=== PATIENT | male | born 2000 | race Caucasian/White ===

== ENCOUNTER 2020-05-10 01:41 | Emergency (ER) | payer SELFPAY ==
[2020-05-10 01:55] VITALS: PULSE 91; RESP 18; TEMP 36.8; O2SAT 98; BMI 26.6
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
[2020-05-10 02:31] VITALS: BP 120/65; PULSE 79; O2SAT 98
[2020-05-10] MEDS: HYDROcodone-acetaminophen 7.5-325 mg Tablet 1 TAB PO (02:52)
[2020-05-10 03:45] VITALS: PULSE 74; O2SAT 98
--- NOTE | 2020-05-10 03:51 | PC.NURSE ---
PT SIGNED OUT AMA DECLINE MORE TESTS WELL SLING
== END 2020-05-10 03:52 | disposition home or self-care (01) ==
PROVIDERS: Emergency Provider Physician Assistant; PCP Pediatrics
DX: S50.01XA Contusion of right elbow, initial encounter (principal); V59.9XXA Occupant (driver) (passenger) of pick-up truck or van injured in unspecified traffic accident, initial encounter
CPT/HCPCS: 12345; 73080; 99281; 99282; 99283

== ENCOUNTER 2020-07-04 15:03 | Emergency (ER) | payer OTHER, SELFPAY ==
[2020-07-04 15:48] VITALS: BP 128/88; PULSE 89; RESP 18; TEMP 36.8; O2SAT 100; BMI 26.8
[2020-07-04] MEDS: tetanus-dipt-pertussis 0.5 mL SDV IM (16:55)
--- NOTE | 2020-07-04 17:01 | W.ED.HEATRA ---
HPI - Head Injury General: Chief complaint: Head Injury Stated complaint: HEAD INJURY Time Seen by Provider: 07/04/20 16:22 Source: patient Mode of arrival: ambulatory Limitations: no limitations History of Present Illness: HPI Narrative: 20-year-old male patient presents to the emergency department with laceration to the top of his head. 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 He states had quick episode of visual change but returned to normal. He states did not experience near syncope or syncopal episode. He has not vomited, he states has a mild headache where the laceration/contusion occurred. MD Complaint: head injury and head pain Onset (ago): hour(s) (1-2) Mechanism of Injury: other (Blunt trauma) Place: work Loss of Consciousness: no Location of injury: parietal Severity: mild Severity scale (1-10): 4 Quality: sharp Radiation: none Other Injuries: none Associated symptoms: Reports no associated symptoms; Deny confusion, nausea, neck pain, vertigo or vomiting Review of Systems General: Reports: 10 or more systems reviewed and unremarkable except in HPI and below Const: Denies: fever(s), chills, body aches, fatigue, malaise or diaphoresis Eyes: Denies: blurry vision or eye redness ENMT: Denies: throat pain, dental pain or disequilibrium Card: Denies: chest pain, palpitations or irregular heart rhythm Resp: Denies: dyspnea, productive cough, non-productive cough or wheezing GI: Denies: abdominal pain, nausea or vomiting : Denies: dysuria Musc: Denies: neck pain, back pain, joint pain or joint stiffness Skin/Breast: Denies: rash or pruritus Neuro: Reports: headache(s); Denies: numbness in extremities, weakness in extremities, lack of coordination, difficulty walking, dizziness, vertigo, confusion, behavioral changes, Slurred speech present or difficulty communicating thoughts Psych: Denies: anxiety or depression Sukhwinder/Lymph: Denies: easy bruising PFSH ED PFSH: Social History Smoking and tobacco status: never smoked Physical Exam Const: COMMON NORMALS: no acute distress, patient oriented x3, healthy appearing and alert GENERAL APPEARANCE: cooperative, comfortable and well hydrated HENMT: COMMON NORMALS: normocephalic, Normal external nose present and moist oral mucous membranes HEAD & SCALP: normocephalic NOSE: Normal external nose present Eye: COMMON NORMALS: Equal, round and reactive pupils present and EOMs intact bilaterally GENERAL EYE: appearance normal, both eyes and all related structures PUPIL: Yes Equal, round and reactive pupils present Neck/C-Spine: COMMON NORMALS: full ROM, no lymphadenopathy and no meningeal signs GENERAL: Yes normal visual inspection and Yes trachea midline CERVICAL SPINE: Yes cervical ROM normal, No cervical ROM abnormal, No pain with cervical ROM, No Cervical spine tenderness, No Paracervical muscle tenderness, No Paracervical spasm and No Trapezius muscle tenderness Lymph: LYMPHATIC: no lymphadenopathy noted Chest: COMMONS NORMALS: normal inspection of the chest Resp: COMMON NORMALS: normal respiratory effort and clear to auscultation bilaterally AUSCULTATION: clear to auscultation bilaterally Cardio: COMMON NORMALS: regular rhythm, S1 normal heart sound present and S2 normal heart sound present RHYTHM: regular rhythm HEART SOUNDS: S1 normal heart sound present and S2 normal heart sound present GI: COMMON NORMALS: Soft to palpation and non-tender INSPECTION: Yes normal to inspection PALPATION: Yes Soft to palpation : COMMON NORMALS: Yes no CVA tenderness BLADDER/KIDNEY EXAM: Yes no CVA tenderness Back/Pelvis: COMMON NORMALS: no CVA tenderness and thoracic and lumbar spine normal to inspection Extremity: COMMON NORMALS: normal to inspection and capillary refill normal Neuro: MICHELLE COMA SCALE: document GCS findings Michelle coma scale eye opening: Spontaneous Michelle coma scale verbal response: Orientated [place] coma scale motor response: Obey commands Michelle coma scale total score: 15 COMMON NORMALS: patient oriented x3 and no focal motor deficits SENSORIUM/ORIENTATION: Yes alert MENINGEAL SIGNS: Yes no meningeal signs SPEECH: speech normal GAIT: Yes Normal gait present MOTOR EXAM: 5/5 motor strength present throughout PUPIL EXAM: Normal pupillary reactivity/response: bilateral Right pupil size (mm): 4 Left pupil size (mm): 4 Psych: COMMON NORMALS: mental status grossly normal, Normal thought process present, cooperative, normal affect, speech normal and activity/motor behavior normal; negative for denies hallucinations, negative for denies homicidal ideation and negative for denies suicidal ideation APPEARANCE: Yes grossly normal ATTITUDE: Yes calm ACTIVITY/MOTOR BEHAVIOR: Yes appropriate eye contact SPEECH: Yes normal speech THOUGHT PROCESS: Normal thought process present THOUGHT CONTENT: Yes Normal thought content present MEMORY/COGNITION: Yes memory grossly intact INSIGHT: Good insight present (Psych) JUDGEMENT: Good judgement present (Psych) Skin: COMMON NORMALS: turgor normal, no petechiae and no mottling GENERAL SKIN EXAM: elasticity normal and turgor normal TRAUMA: laceration (Superior scalp, at the crown, 1.5 cm stellate) stellate, actively bleeding (Mild amount) and involves subcutaneous tissue Procedures Laceration Laceration 1: Site: scalp Size (cm): 1.5 Description: stellate Depth: simple, single layer Local Anesthetic: lidocaine 1% and with epi Amount of anesthesia used (mL): 3 Pre-repair: wound explored, irrigated extensively, deep structures intact and extensive debridement Skin layer closed with: other (levy, # 3) Course Vital Signs: Vital signs: Vital Signs Temperature 98.3 F 07/04/20 15:48 Pulse Rate 75 07/04/20 17:46 Respiratory Rate 16 07/04/20 17:46 Blood Pressure 115/65 07/04/20 17:46 Pulse Oximetry 99 07/04/20 17:46 Discharge Plan Discharge Patient Disposition: Home Clinical Impression: Closed head injury Qualifiers: Encounter type: initial encounter Qualified Code(s): S09.90XA - Unspecified injury of head, initial encounter Laceration of scalp Qualifiers: Encounter type: initial encounter Qualified Code(s): S01.01XA - Laceration without foreign body of scalp, initial encounter Condition: Stable Prescriptions: No Action methylprednisolone [Medrol (Estrada)] 4 mg tablets,dose pack See Rx Instructions PO PER PKG DIR Qty: 21 RF: 0 triamcinolone acetonide 0.1 % cream 1 applic topical BID Qty: 80 RF: 0 Discharge Orders: Discharge ED (Routine); Ordered 07/04/20 Ordered By: Gracie Walter Discharge Diet: Usual diet Discharge Activity: Limit activity as instructed Patient Instructions: Diphtheria/Acellular Pertussis/Tetanus Booster Vaccine (Tdap) (Injection), Scalp Laceration, Laceration (ED), Minor Head Injury (ED), Staple Care (ED), Opioid Safety Activity Restrictions/Additional Instructions: Levy out in 7 days Return to the emergency department if you develop the worst headache of your life, increased pain to the laceration site or other concerning symptoms such as vomiting or lethargy/confusion Tetanus shot has been provided for you today May apply cool compresses to the affected area several times daily, keep the head of your bed elevated to help with head pain while sleeping for the next 48 hours. 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
[2020-07-04] MEDS: acetaminophen 325 mg Tablet 650 MG PO (17:38)
[2020-07-04 17:46] VITALS: BP 115/65; PULSE 75; RESP 16; O2SAT 99
--- NOTE | 2020-07-12 18:44 | PC.NURSE ---
Patient returned to ED to have 3 glenna removed from the top of his head. Glenna removed at this time.
== END 2020-07-04 17:48 | disposition home or self-care (01) ==
PROVIDERS: Emergency Provider Nurse Practitioner Family
DX: S01.01XA Laceration without foreign body of scalp, initial encounter (principal); S09.8XXA Other specified injuries of head, initial encounter; W22.8XXA Striking against or struck by other objects, initial encounter; Z23 Encounter for immunization
CPT/HCPCS: 12001; 90471; 90715; 99283